=== PATIENT | female | born 1960 | race Caucasian/White ===

== ENCOUNTER 2017-11-07 13:02 | Emergency (ER) | payer MEDICARE, OTHER ==
[~2017-11-07] VITALS: Ht 165.1 cm; Wt 158.8 kg
== END 2017-11-07 19:22 | disposition home or self-care (01) ==
LOC: ED 13:02
DX: S76.012A Strain of muscle, fascia and tendon of left hip, initial encounter (principal); M79.7 Fibromyalgia; E11.9 Type 2 diabetes mellitus without complications; I10 Essential (primary) hypertension; K21.9 Gastro-esophageal reflux disease without esophagitis; Z88.8 Allergy status to other drugs, medicaments and biological substances; Z88.6 Allergy status to analgesic agent; W00.9XXA Unspecified fall due to ice and snow, initial encounter
CPT/HCPCS: 72192; 73502; 99284

== ENCOUNTER 2024-06-17 15:55 | Emergency (ER) | payer OTHER, MEDICARE ==
[~2024-06-17] VITALS: Ht 165.1 cm; Wt 127.8 kg
[2024-06-17] MEDS ORDERED: GLIPIZIDE5 MG PO (16:15)
[2024-06-17] MEDS ORDERED: CELECOXIB100 MG PO (16:16)
[2024-06-17] MEDS ORDERED: PRIMIDONE50 MG PO (16:16)
[2024-06-17] MEDS ORDERED: COMBIVENT RESPIM4 GM INH (16:16)
[2024-06-17] MEDS ORDERED: CLONAZEPAM0.5 MG PO (16:16)
[2024-06-17] MEDS ORDERED: FLUOXETINE HCL20 MG PO (16:16)
[2024-06-17] MEDS ORDERED: OMEPRAZOLE20 MG PO (16:17)
[2024-06-17] MEDS ORDERED: OZEMPIC0.25 MG/02 (16:17)
[2024-06-17] MEDS ORDERED: OXYCODONE/APAP 5/325 TAB PO ONE (17:15)
[2024-06-17] MEDS ORDERED: LIDOCAINE & ANTACID 35 ML BTL PO ONE (17:15)
[2024-06-17] MEDS ORDERED: CYCLOBENZAPRINE HCL 10 MG TAB PO ONE (17:15)
[2024-06-17] MEDS ORDERED: ondansetron HCL 4 MG/2 ML VIAL IV ONE (19:30)
[2024-06-17] MEDS ORDERED: HYDROmorphone HCL 1 MG/ML SYR IV ONE (19:30)
[2024-06-17] MEDS ORDERED: HYDROCODON-ACE1 EA10 PO (21:39)
[2024-06-17] MEDS ORDERED: HYDROCODONE BIT/ACETAMINOPHEN 5/325 MG 1 TAB HOME.PACK PO ONE (21:45)
[2024-06-17 22:05] VITALS: BP 147/80
== END 2024-06-17 22:05 | disposition home or self-care (01) ==
LOC: ED 15:55
DX: S22.071A Stable burst fracture of T9-T10 vertebra, initial encounter for closed fracture (principal); S22.069A Unspecified fracture of T7-T8 vertebra, initial encounter for closed fracture; M79.7 Fibromyalgia; E11.9 Type 2 diabetes mellitus without complications; I11.9 Hypertensive heart disease without heart failure; K74.60 Unspecified cirrhosis of liver; N19 Unspecified kidney failure; K21.9 Gastro-esophageal reflux disease without esophagitis; Z88.6 Allergy status to analgesic agent; Z88.8 Allergy status to other drugs, medicaments and biological substances; Z91.010 Allergy to peanuts; Z91.018 Allergy to other foods; Z91.048 Other nonmedicinal substance allergy status; Z79.84 Long term (current) use of oral hypoglycemic drugs; Z79.1 Long term (current) use of non-steroidal anti-inflammatories (NSAID); Z79.85 Long-term (current) use of injectable non-insulin antidiabetic drugs; Z79.899 Other long term (current) drug therapy; W01.0XXA Fall on same level from slipping, tripping and stumbling without subsequent striking against object, initial encounter
CPT/HCPCS: 71101; 72070; 72100; 72128; 72131; 73130; 96374; 96375; 99284-25; A9270; J1171; J2405

== ENCOUNTER 2024-06-20 08:13 | Emergency (ER) | payer MEDICARE, OTHER ==
[~2024-06-20] VITALS: Ht 165.1 cm; Wt 139.0 kg
[~2024-06-20 08:13] MED LIST: CELECOXIB100 MG PO; CLONAZEPAM0.5 MG PO; COMBIVENT RESPIM4 GM INH; FLUOXETINE HCL20 MG PO; GLIPIZIDE5 MG PO; HYDROCODON-ACE1 EA10 PO; OMEPRAZOLE20 MG PO; OZEMPIC0.25 MG/02; PRIMIDONE50 MG PO
--- OUTSIDE RECORDS SUMMARY | 2024-06-20 08:22 | XMS ---
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 Layla VISIT COUNT (12 MO.) 2 [facility]ON [facility] TOTAL 3 NOTE: Visits indicate total known visits. 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 - Fall on same level from slipping, tripping and stumbling without subsequent striking against object, initial encounter - Fibromyalgia - Gastro-esophageal reflux disease without esophagitis - Hypertensive heart disease without heart failure - long term acute care registered nurse (current) use of non-steroidal anti-inflammatories (NSAID) - care home (current) use of oral hypoglycemic drugs - Long-term (current) use of injectable non-insulin antidiabetic drugs - Other chest pain - Other alf (current) drug therapy - Other nonmedicinal substance allergy status - Stable burst fracture of T9-T10 vertebra, initial encounter for closed fracture - Type 2 diabetes mellitus without complications - Unspecified cirrhosis of liver - Unspecified fracture of T7-T8 vertebra, initial encounter for closed fracture - Unspecified kidney failure 02/20/2024 12:50 [facility] OR TYPE: Emergency INPATIENT VISIT TRACKING (12 MO.) No inpatient visits to display in this time frame [email or web address]
[2024-06-20] MEDS ORDERED: SODIUM CHLORIDE 0.9% 1,000 ML IV ONE (08:30)
[2024-06-20] MEDS ORDERED: ondansetron HCL 4 MG/2 ML VIAL IV ONE (08:30)
[2024-06-20] MEDS ORDERED: HYDROmorphone HCL 1 MG/ML SYR IV ONE (08:30)
[2024-06-20 08:38] LABS: BILIRUBIN, URINE NEGATIVE (negative); BLOOD/HGB, URINE LARGE (Negative); KETONE, URINE NEGATIVE (Negative); LEUK ESTERASE, URINE SMALL (negative); NITRITE, URINE NEGATIVE (negative)
[2024-06-20 08:47] LABS: BACTERIA, URINE 2+ /hpf (negative); CASTS, URINE NONE SEEN \\lpf; CRYSTALS, URINE NONE SEEN (0-1+); EPITHELIAL CELLS, URINE 0 /lpf (0-1+); WHITE BLOOD CELLS, URINE >50 /HPF (0-5)
[2024-06-20] MEDS ORDERED: PREGABALIN200 MG PO (08:47)
[2024-06-20] MEDS ORDERED: DULOXETINE HCL60 MG PO (08:47)
[2024-06-20] MEDS ORDERED: ATORVASTATIN CA20 MG PO (08:47)
[2024-06-20] MEDS ORDERED: DULOXETINE HCL30 MG PO (08:47)
[2024-06-20 08:48] LABS: COLLECTION TYPE, URINE CATH; REFLEX CULTURE, URINE Yes (No)
[2024-06-20 08:50] LABS: BASOPHILS 0.3 % (0-2); EOSINOPHILS 4.1 % (0-6); HEMATOCRIT 34.2 % (35.0-50.0); HEMOGLOBIN 11.5 g/dL (12.0-18.0); LYMPHOCYTES 18.3 % (24-44); MCH 28.3 (27-36); MCHC 33.6 g/dl (30-36); MONOCYTES 8.2 % (0-12); NEUTROPHILS 69.1 % (39-80); PLATELET COUNT 51 K/uL (140-440); RBC 4.07 M/ul (4.3-5.7); RDW 15.8 (10.5-15.0)
[2024-06-20 09:05] LABS: ALBUMIN 2.8 g/dL (3.4-5.0); ALBUMIN/GLOBULIN RATIO 0.88 (1.1-2.4); BILIRUBIN, TOTAL 0.7 ng/dL (0.2-1.0); BUN/CREATININE RATIO 19.62 (6.0-28.6); CALCIUM 8.8 mg/dL (8.5-10.1); CREATININE, SERUM 1.07 mg/dL (0.55-1.02)
[2024-06-20] MEDS ORDERED: CEFTRIAXONE/SODIUM CHLORIDE 1 GM/100 ML PIGGYBACK IV ONE (10:45)
[2024-06-20] MEDS ORDERED: FLUCONAZOLE 200 MG TAB PO ONE (11:00)
[2024-06-20] MEDS ORDERED: CEFDINIR300 MG PO (12:09)
[2024-06-20] MEDS ORDERED: ONDANSETRON ODT8 MG PO (12:09)
[2024-06-20 12:22] VITALS: BP 144/86
== END 2024-06-20 12:24 | disposition home or self-care (01) ==
LOC: ED 08:13
PROVIDERS: Emergency Medicine
DX: N39.0 Urinary tract infection, site not specified (principal); R31.9 Hematuria, unspecified; K80.20 Calculus of gallbladder without cholecystitis without obstruction; I12.9 Hypertensive chronic kidney disease with stage 1 through stage 4 chronic kidney disease, or unspecified chronic kidney disease; E11.22 Type 2 diabetes mellitus with diabetic chronic kidney disease; N18.9 Chronic kidney disease, unspecified; K74.60 Unspecified cirrhosis of liver; J45.909 Unspecified asthma, uncomplicated; K21.9 Gastro-esophageal reflux disease without esophagitis; M79.7 Fibromyalgia; E66.01 Morbid (severe) obesity due to excess calories; Z68.43 Body mass index [BMI] 50.0-59.9, adult; Z91.010 Allergy to peanuts; Z91.018 Allergy to other foods; Z91.048 Other nonmedicinal substance allergy status; Z79.84 Long term (current) use of oral hypoglycemic drugs; Z79.85 Long-term (current) use of injectable non-insulin antidiabetic drugs; Z79.899 Other long term (current) drug therapy
CPT/HCPCS: 36415; 51701; 74176; 80053; 81001; 82553; 83690; 85025; 85060; 87077; 87088; 87186; 99284-25; J0696; J7030

== ENCOUNTER 2024-08-11 04:32 | Emergency (ER) | payer MEDICARE, OTHER ==
[~2024-08-11] VITALS: Ht 165.1 cm
[~2024-08-11 04:32] MED LIST changes: +ATORVASTATIN CA20 MG PO; +CEFDINIR300 MG PO; +DULOXETINE HCL30 MG PO; +DULOXETINE HCL60 MG PO; +ONDANSETRON ODT8 MG PO; +PREGABALIN200 MG PO
[2024-08-11] MEDS ORDERED: SODIUM CHLORIDE 0.9% 1,000 ML IV ONE (04:45)
[2024-08-11 04:55] LABS: BASOPHILS 0.2 % (0-2); EOSINOPHILS 0.5 % (0-6); MCH 28.3 (27-36); MCHC 34.1 g/dl (30-36); MCV 83.1 fl (81-99); MONOCYTES 8.7 % (0-12); NEUTROPHILS 82.6 % (39-80); RBC 4.58 M/ul (4.3-5.7); RDW 15.7 (10.5-15.0)
[2024-08-11 04:56] LABS: BILIRUBIN, URINE POSITIVE (negative); BLOOD/HGB, URINE MODERATE (Negative); KETONE, URINE TRACE (Negative); LEUK ESTERASE, URINE LARGE (negative); NITRITE, URINE POSITIVE (negative)
[2024-08-11] MEDS ORDERED: IBUPROFEN 600 MG TAB PO ONE (05:00)
[2024-08-11 05:02] LABS: ALBUMIN 3.2 g/dL (3.4-5.0); ALBUMIN/GLOBULIN RATIO 0.8 (1.1-2.4); ANION GAP 15.3 (7-21); BILIRUBIN, TOTAL 2.9 ng/dL (0.2-1.0); BUN/CREATININE RATIO 9.23 (6.0-28.6); CREATININE, SERUM 1.3 mg/dL (0.55-1.02); POTASSIUM 4.3 mmol/L (3.5-5.1); PROTEIN, TOTAL 7.2 g/dL (6.4-8.2)
[2024-08-11 05:05] LABS: BACTERIA, URINE 1+ /hpf (negative); CASTS, URINE NONE SEEN \\lpf; COLLECTION TYPE, URINE CLEAN CATCH; CRYSTALS, URINE NONE SEEN (0-1+); EPITHELIAL CELLS, URINE 0 /lpf (0-1+); REFLEX CULTURE, URINE Yes (No); WHITE BLOOD CELLS, URINE 21-40 /HPF (0-5)
[2024-08-11 05:11] LABS: PLATELET COUNT 44 K/uL (140-440)
[2024-08-11] MEDS ORDERED: MAGNESIUM SULFATE 2 GM/50 ML BAG IV ONE (05:45)
[2024-08-11] MEDS ORDERED: CEFTRIAXONE/SODIUM CHLORIDE 2 GM/100 ML PIGGYBACK IV ONE (06:00)
[2024-08-11] MEDS ORDERED: MAGNESIUM OXID400 M1 PO (07:26)
[2024-08-11] MEDS ORDERED: CEFDINIR300 MG PO (07:26)
[2024-08-11] MEDS ORDERED: CEFDINIR 300 MG HOME.PACK PO ONE (07:30)
[2024-08-11] MEDS ORDERED: FLUCONAZOLE150 MG PO (07:39)
[2024-08-11 08:40] VITALS: BP 141/68
== END 2024-08-11 08:40 | disposition home or self-care (01) ==
LOC: ED 04:32
PROVIDERS: Family Medicine
DX: N39.0 Urinary tract infection, site not specified (principal); E83.42 Hypomagnesemia; D69.6 Thrombocytopenia, unspecified; K72.10 Chronic hepatic failure without coma; E11.22 Type 2 diabetes mellitus with diabetic chronic kidney disease; I12.9 Hypertensive chronic kidney disease with stage 1 through stage 4 chronic kidney disease, or unspecified chronic kidney disease; N18.9 Chronic kidney disease, unspecified; Z91.010 Allergy to peanuts; Z91.018 Allergy to other foods; Z91.09 Other allergy status, other than to drugs and biological substances; Z91.048 Other nonmedicinal substance allergy status; Z79.899 Other long term (current) drug therapy
CPT/HCPCS: 36415; 51701; 80053; 81001; 83735; 85025; 85060; 87077; 87088; 87186; 99285-25; A9270; J0696; J3475; J7030